=== PATIENT | female | born 1950 | race Caucasian/White ===

== ENCOUNTER 2023-06-26 06:54 | Day surgery (SDC) | payer MEDICARE ==
[2023-06-26] MEDS ORDERED: Midazolam 1 MG/ML 2 ML SDV IV ONE (06:55)
[2023-06-26] MEDS ORDERED: Propofol 200 MG/20 ML SDV IV ONE (06:55)
[2023-06-26] MEDS ORDERED: Sodium Chloride 0.9% 10 ML Syringe FLUSH PRN (07:00)
[2023-06-26] MEDS ORDERED: Lactated Ringers 1,000 ML IV SCH (07:00)
[2023-06-26] MEDS ORDERED: Simethicone Drops 40 MG/0.6 ML 30 ML Bottle PO ONE (08:19)
== END 2023-06-26 09:27 | disposition home or self-care (01) ==
LOC: FB.SDS 06:54
PROVIDERS: ATTEND Surgery
DX: K57.30 Diverticulosis of large intestine without perforation or abscess without bleeding (principal)
CPT/HCPCS: 45378; A9270; J2250; J2704; J7120